=== PATIENT | female | born 1985 | race Caucasian/White ===

== ENCOUNTER 2018-04-20 15:00 | Inpatient (IN) | payer MEDICAID ==
[2018-04-20] MEDS: LACTATED RINGER'S 1,000 ML IV (17:22)
[2018-04-20] MEDS ORDERED: IBUPROFEN 600 MG TAB PO (17:30)
[2018-04-20] MEDS ORDERED: METHYLERGONOVINE 0.2 MG INJ IM (17:30)
[2018-04-20] MEDS ORDERED: OXYCODONE/ASPIRIN (4.88/325) TAB PO (17:30)
[2018-04-20] MEDS ORDERED: LIDOCAINE 1% (MPF) 30 ML INJ INJ (17:30)
[2018-04-20] MEDS ORDERED: CARBOPROST 250 MCG INJ IM (17:30)
[2018-04-20] MEDS ORDERED: OXYTOCIN 30 UNITS/LR 500 ML IV ×3 (17:30)
[2018-04-20] MEDS ORDERED: MISOPROSTOL 200 MCG TAB PR (17:30)
[2018-04-20] MEDS: AMPICILLIN 2 GM/NS (PMX) 100 ML IV (17:34)
[2018-04-20 17:48] LABS: AMPHETAMINE/METHAMPHETAMINE Negative (NEGATIVE); BARBITURATES Negative (NEGATIVE); BENZODIAZEPINES Negative (NEGATIVE); CANNABINOIDS Negative (NEGATIVE); COCAINE Negative (NEGATIVE); OPIATES Negative (NEGATIVE)
[2018-04-20 17:57] LABS: ADD MAN DIFF? NO
[2018-04-20 18:02] LABS: WHITE BLOOD COUNT 15.7 10^3/ul (4.8-10.8)
[2018-04-20 18:02] LABS: BASOPHIL # 0.1 10^3/ul (0.0-0.1); BASOPHILS % 0.3 % (0.0-2.0); EOSINOPHILS # 0.1 10^3/ul (0.0-0.5); EOSINOPHILS % 0.5 % (0.0-7.0); HEMOGLOBIN 14.3 g/dl (12.0-16.0); LYMPHOCYTES # 2.4 10^3/ul (0.8-2.9); LYMPHOCYTES % 15.4 % (15.0-51.0); MEAN CORPUSCULAR HEMOGLOBIN 30.6 pg (29.0-33.0); MEAN CORPUSCULAR VOLUME 89.7 fl (82.0-101.0); MEAN PLATELET VOLUME 11.3 fl (7.4-10.4); MONOCYTE # 0.9 10^3/ul (0.3-0.9); MONOCYTES % 5.7 % (0.0-11.0); NEUTROPHIL # 11.9 10^3/ul (1.6-7.5); PLATELET COUNT 240 10^3/UL (140-415); RED BLOOD COUNT 4.68 10^6/ul (4.20-5.40); RED CELL DISTRIBUTION WIDTH 12.8 % (11.5-14.5)
[2018-04-20 18:22] LABS: INR 0.89; PARTIAL THROMBOPLASTIN TIME 27.5 Sec (23.0-35.0); PROTIME 12.1 Sec (11.9-14.9); PT RATIO 0.9
[2018-04-20 18:53] LABS: HEPATITIS B SURFACE ANTIGEN NEGATIVE (NEGATIVE)
[2018-04-20 19:03] LABS: HIV 1&2 ANTIBODY NEGATIVE (NEGATIVE)
[2018-04-20 20:34] LABS: GLUCOSE 137 mg/dl (70-220)
[2018-04-20] MEDS: MISOPROSTOL 50 MCG CAPSULE PO (20:56)
[2018-04-20] MEDS ORDERED: AMPICILLIN 1 GM/NS (PMX) 50 ML IV (21:30)
[2018-04-21] MEDS: LACTATED RINGER'S 1,000 ML IV ×3 (01:03→19:41)
[2018-04-21] MEDS: MISOPROSTOL 50 MCG CAPSULE PO ×6 (01:04→22:02)
[2018-04-21 20:01] LABS: RAPID PLASMA REAGIN NONREACTIVE (NR)
[2018-04-21] MEDS ORDERED: LACTATED RINGER'S 1,000 ML IV (22:02)
[2018-04-22] MEDS: LACTATED RINGER'S 1,000 ML IV ×4 (04:18→20:06)
[2018-04-22] MEDS: MAGNESIUM HYDROXIDE 30ML CUP PO (07:58)
[2018-04-22] MEDS: AMPICILLIN 2 GM/NS (PMX) 100 ML IV (08:50)
[2018-04-22] MEDS: OXYTOCIN 30 UNITS/LR 500 ML IV (08:53)
[2018-04-22 09:21] LABS: RUBELLA ANTIBODY - IGM <20.00 AU/mL
[2018-04-22 10:06] LABS: RUBELLA ANTIBODY - IGG <0.90 index
[2018-04-22] MEDS: AMPICILLIN 1 GM/NS (PMX) 50 ML IV ×3 (12:10→20:06)
[2018-04-22] MEDS: BUTORPHANOL 2 MG INJ IV (15:49)
[2018-04-22] MEDS ORDERED: DIPHENHYDRAMINE 50 MG INJ IV (18:00)
[2018-04-22] MEDS ORDERED: ZOLPIDEM 5 MG TAB PO (18:00)
[2018-04-22] MEDS ORDERED: NALOXONE (0.4 MG/ML) INJ IV (18:00)
[2018-04-22] MEDS ORDERED: HYDROmorphONE 0.5 MG/0.5 ML SYG IV ×2 (18:00)
[2018-04-22] MEDS: FENTAnyl 2MCG/ML-ROPIV 0.2% 100 ML BAG EPI (18:41)
[2018-04-23] MEDS: AMPICILLIN 1 GM/NS (PMX) 50 ML IV ×5 (00:08→16:04)
[2018-04-23] MEDS: FENTAnyl 2MCG/ML-ROPIV 0.2% 100 ML BAG EPI ×3 (02:52→16:33)
[2018-04-23] MEDS: LACTATED RINGER'S 1,000 ML IV ×2 (06:17→07:59)
[2018-04-23] MEDS ORDERED: ACETAMINOPHEN 325 MG TAB (12:46)
[2018-04-23] MEDS: ACETAMINOPHEN 325 MG TAB PO (12:52)
[2018-04-23] MEDS: ONDANSETRON 4 MG INJ IV (16:35)
[2018-04-23] MEDS: KETOROLAC 30 MG INJ IV (20:34)
[2018-04-23] MEDS ORDERED: METHYLERGONOVINE 0.2 MG INJ IM (22:30)
[2018-04-23] MEDS ORDERED: CARBOPROST 250 MCG INJ IM (22:30)
[2018-04-23] MEDS ORDERED: OXYCODONE/ASPIRIN (4.88/325) TAB PO (22:30)
[2018-04-23] MEDS ORDERED: OXYTOCIN 30 UNITS/LR 500 ML IV (22:30)
[2018-04-23] MEDS ORDERED: NACL 0.9% 3 ML SYG IV (22:30)
[2018-04-23] MEDS ORDERED: MISOPROSTOL 200 MCG TAB PR (22:30)
[2018-04-23] MEDS ORDERED: ZOLPIDEM 5 MG TAB PO (22:30)
[2018-04-23] MEDS ORDERED: SENNA/DOCUSATE NA (8.6MG/50MG) TAB PO (22:30)
[2018-04-23] MEDS: OXYTOCIN 30 UNITS/LR 500 ML IV (22:33)
[2018-04-24] MEDS: IBUPROFEN 600 MG TAB PO ×4 (06:00→18:00)
[2018-04-24 08:40] LABS: ADD MAN DIFF? NO
[2018-04-24 08:42] LABS: WHITE BLOOD COUNT 17.5 10^3/ul (4.8-10.8)
[2018-04-24 08:42] LABS: ABNORMAL IP MESSAGE 1; BASOPHIL # 0.1 10^3/ul (0.0-0.1); BASOPHILS % 0.3 % (0.0-2.0); EOSINOPHILS # 0.1 10^3/ul (0.0-0.5); EOSINOPHILS % 0.7 % (0.0-7.0); HEMATOCRIT 34.2 % (37.0-47.0); HEMOGLOBIN 11.5 g/dl (12.0-16.0); LYMPHOCYTES # 2.4 10^3/ul (0.8-2.9); LYMPHOCYTES % 13.8 % (15.0-51.0); MEAN CORPUSCULAR HEMOGLOBIN 30.6 pg (29.0-33.0); MEAN CORPUSCULAR HGB CONC 33.6 g/dl (32.0-37.0); MEAN PLATELET VOLUME 11.4 fl (7.4-10.4); MONOCYTE # 1.6 10^3/ul (0.3-0.9); MONOCYTES % 8.9 % (0.0-11.0); NEUTROPHIL # 13.1 10^3/ul (1.6-7.5); NEUTROPHILS % 75.2 % (39.0-77.0); PLATELET COUNT 205 10^3/UL (140-415); RED BLOOD COUNT 3.76 10^6/ul (4.20-5.40); RED CELL DISTRIBUTION WIDTH 12.9 % (11.5-14.5)
[2018-04-24 08:45] LABS: POSITIVE DIFF @See below
[2018-04-24] MEDS: SENNA/DOCUSATE NA (8.6MG/50MG) TAB PO ×2 (09:22→21:31)
[2018-04-24] MEDS: MINERAL OIL LIGHT 10 ML VIAL TOP (18:49)
[2018-04-25] MEDS: IBUPROFEN 600 MG TAB PO ×2 (05:54)
[2018-04-25] MEDS: SENNA/DOCUSATE NA (8.6MG/50MG) TAB PO (09:20)
[2018-04-25] MEDS: DIPHTH/TET/ACEL PERTUSS (ADULT) 0.5 ML VIAL IM* (09:23)
== END 2018-04-25 12:39 | disposition home or self-care (01) | DRG 807 ==
LOC: OBT 15:00 → L-D 15:00 → PP1 04-23 21:48 → OBT 16:04 → L-D 16:04
PROC: 10E0XZZ Delivery of Products of Conception, External Approach (ICD-10-PCS; principal; 2018-04-22)
DX: O80 Encounter for full-term uncomplicated delivery (principal); Z37.0 Single live birth; Z3A.39 39 weeks gestation of pregnancy
CPT/HCPCS: 62319; 76815; 76818; 80307; 82947; 82962; 83036; 85025; 85610; 85730; 86592; 86703; 86762; 86850; 86900; 86901; 87340; 90686; 90715; 99464